=== PATIENT | female | born 1995 | race Hispanic/Latino ===

== ENCOUNTER 2017-12-25 09:24 | Outpatient (CLI) | payer OTHER ==
--- NOTE | 2017-12-25 13:27 | ULT ---
OB ULTRASOUND: HISTORY: Evaluate for size and dates. COMPARISON: None. TECHNIQUE: Sagittal and transverse imaging of gravid uterus performed. FINDINGS: The cervix is poorly defined. Posterior placenta. Single intrauterine gestation, breech presentation. heart tones with a rate of 140 b.p.m. BIOMETRY: BPD 5.25 cm, 22 weeks 0 days Head circumference 20.34 cm, 22 weeks 3 days Abdominal circumference 17.88 cm, 22 weeks 5 days Femur length 4.02 cm, 23 weeks 0 days Average age by sonography is 22 weeks 4 days. Estimated delivery date is 04/26/2018. Estimated weight is 534 gm +/- 79 grams. Amniotic fluid index is 14.7 cm. Survey: The following structures are adequately demonstrated: Nose and lips, orbits, urinary bladder, 3-vess el cord. Limited evaluation of the intracranial structures, stomach, 4-chamber heart, kidneys, and s pine. Visualized extremities are unremarkable. IMPRESSION: 1. Single intrauterine gestation with heart tones. Average age by sonography is 22 weeks 4 da ys. 2. Limited survey. Followup imaging can be performed. POS: YO
== END 2017-12-25 09:25 | disposition home or self-care (01) ==
LOC: ULT 09:24
PROVIDERS: ATTEND Family Medicine
DX: O09.892 Supervision of other high risk pregnancies, second trimester (principal)
CPT/HCPCS: 76805

== ENCOUNTER 2018-04-26 22:29 | Day surgery (SDC) | payer OTHER ==
[2018-04-26 23:18] VITALS: BMI 51.0
--- NOTE | 2018-04-27 | PDOC.LDHP ---
Labor and Delivery H&P Chief complaint: contractions HPI: 22 y/o G1 at 40w0d, patient of Dr. Marks, presents with ctx q 5 mins. Denies VB , LOF, decreased FM or other concerns. Was 3cm in clinic yesterday. ROS neg for HEENT, CV, pulm, GI, , neuro, psych, skin, musculoskeletal, or constitutional symptoms other than mentioned above. OB History Details: First Current complications: none Current medications: pre- vitamins Previous surgical history: none Allergies/Adverse Reactions: Allergies Allergy/AdvReac Type Severity Reaction Status Date / Time No Known Allergies Allergy Unverified 04/26/18 23:10 Social history: none - Physical Exam Vital signs reviewed and normal: yes General: NAD, resting Lungs: nonlabored breathing Abdomen: gravid Extremeties: no edema FHT: category 1 (135, mod variability, + accels, no decels) [place] contractions every: 4-5 mins - Vaginal Exam cm dilated: 3 Station: -3 - Assessment 22 y/o G1 at 40w0d with no e/o active labor. status reassuring with reactive NST. - Plan -: D/c home with precautions. Advised to keep all appointments.
== END 2018-04-26 23:55 | disposition home or self-care (01) ==
LOC: L&D/OP 22:29
PROVIDERS: ATTEND Family Medicine
DX: O47.1 False labor at or after 37 completed weeks of gestation (principal); Z3A.40 40 weeks gestation of pregnancy; Z79.899 Other long term (current) drug therapy
CPT/HCPCS: 99282

== ENCOUNTER 2018-04-29 07:53 | Inpatient (IN) | payer OTHER ==
[2018-04-29] MEDS ORDERED: Promethazine HCl 25 MG/ML VIAL IM PRN ×3 (08:13→20:25)
[2018-04-29] MEDS ORDERED: Ondansetron PF 4 MG/2 ML Vial IVP PRN ×4 (08:13→22:03)
[2018-04-29] MEDS ORDERED: Lactated Ringer's 1,000 ML IV SCH ×2 (08:15→22:03)
[2018-04-29] MEDS ORDERED: NS / Oxytocin 40 units/1000ml 1,000 ML IV PRN (08:16)
[2018-04-29] MEDS ORDERED: Ibuprofen 800 MG TAB PO PRN (08:16)
[2018-04-29] MEDS ORDERED: HYDROcodone/Acetaminophen 5/325 mg Tablet PO PRN ×3 (08:16→22:03)
[2018-04-29] MEDS ORDERED: Lidocaine 1% (PF) 30 ML VIAL SC PRN (08:16)
[2018-04-29] MEDS: Lactated Ringer's 1,000 ML IV SCH ×2 (08:35→11:55)
[2018-04-29 08:49] LABS: Hemoglobin 11.6 g/dL (12.0-16.0); Mean Corpuscular HGB CONC 32.3 g/dL (32.0-36.0); Mean Corpuscular Hemoglobin 25.5 pg (25.0-35.0); Mean Corpuscular Volume 78.9 fL (78.0-98.0); Mean Platelet Volume 8.7 fL (7.4-10.4); Platelet Count 309 thou/uL (130-400); RBC Distribution Width 13.9 % (11.5-14.5); Red Blood Cell (RBC) Count 4.57 mill/uL (4.00-5.20); White Blood Cell (WBC) Count 14.3 thou/uL (4.8-10.8)
[2018-04-29 09:05] VITALS: BMI 51.0
[2018-04-29 09:24] LABS: Syphilis Antibody Nonreactive (Nonreactive); Syphilis Antibody Index 0.02 S/CO (<1.00 Non-Reactive)
[2018-04-29 09:25] LABS: HBSAg Index 0.22 S/CO (0-0.99); Hep B Surf Ag Non-Reactive S/CO (NonReactive)
[2018-04-29] MEDS ORDERED: Methylergonovine 0.2 MG/ML VIAL IM SCH (09:30)
[2018-04-29] MEDS ORDERED: Carboprost 250 MCG/ML AMP IM SCH (09:30)
[2018-04-29] MEDS ORDERED: Fentanyl 4 mcg/Bup 0.1% Cadd 100 ML ONE (10:02)
[2018-04-29] MEDS ORDERED: Lidocaine 1.5%/Epinephrine 1:200,000 5 ML AMPUL IJ ONE (10:46)
[2018-04-29] MEDS ORDERED: Bupivacaine 0.25% HCL 30 ML VIAL ONE (11:11)
[2018-04-29] MEDS ORDERED: Acetaminophen 325 MG TAB PO PRN (11:59)
[2018-04-29] MEDS ORDERED: diphenhydrAMINE 50 MG/ML VIAL IVP PRN ×2 (11:59→20:25)
[2018-04-29] MEDS ORDERED: ePHEDrine/0.9% NaCl/PF SYRINGE 50 mg/10 ml SLOW IVP PRN (11:59)
[2018-04-29] MEDS ORDERED: Naloxone HCl 0.4 mg/ml Vial IVP PRN ×4 (11:59→20:25)
[2018-04-29] MEDS ORDERED: Eucerin (Mineral Oil/Petrolatum,White) 30 gm Jar TOP PRN ×2 (11:59→20:25)
[2018-04-29] MEDS ORDERED: Lactated Ringer's 500 ML IV PRN (11:59)
[2018-04-29] MEDS ORDERED: Fentanyl 4 mcg/Bupivacaine 0.1% Cassette 100 ML EPIDURAL SCH (12:00)
[2018-04-29] MEDS ORDERED: Communication Order-Pharmacy FS SCH ×2 (12:00→20:30)
[2018-04-29] MEDS ORDERED: NS w/ Oxytocin 10 units 500 ML ONE (14:01)
[2018-04-29] MEDS ORDERED: Bicitra 30 ML UDCUP ONE (18:37)
[2018-04-29] MEDS ORDERED: Lidocaine 2% 10 ML INJ ONE (18:57)
[2018-04-29] MEDS ORDERED: MORPHINE 5 MG/10 ML PF VIAL ONE (19:04)
[2018-04-29] MEDS ORDERED: Ondansetron PF 4 MG/2 ML Vial ONE (19:05)
[2018-04-29] MEDS ORDERED: Oxytocin 10 UNITS/ML VIAL ONE (19:05)
[2018-04-29] MEDS ORDERED: Carboprost 250 MCG/ML AMP ONE ×2 (19:29→19:35)
[2018-04-29] MEDS ORDERED: Methylergonovine 0.2 MG/ML VIAL ONE (19:29)
[2018-04-29] MEDS ORDERED: Fentanyl 100 MCG/2 ML VIAL ONE (19:47)
[2018-04-29] MEDS ORDERED: Naloxone HCl 0.4 mg/ml Vial IV PRN (20:25)
[2018-04-29] MEDS ORDERED: Promethazine HCl 25 MG SUPP PR PRN (20:25)
[2018-04-29] MEDS ORDERED: HYDROmorphone 2 MG/ML VIAL SLOW IVP PRN (20:26)
[2018-04-29] MEDS ORDERED: L&D-Morphine 4 MG/ML VIAL SLOW IVP PRN (20:26)
[2018-04-29] MEDS ORDERED: Ondansetron HCl/PF 4 MG/2 ML Vial IVP PRN (20:26)
[2018-04-29] MEDS ORDERED: cloNIDine 0.1 MG TAB PO PRN ×2 (20:26→20:28)
[2018-04-29] MEDS ORDERED: Meperidine HCl/PF 25 MG/ML VIAL SLOW IVP PRN (20:26)
[2018-04-29] MEDS ORDERED: Ketorolac Tromethamine 30 MG/ML VIAL IVP SCH (20:30)
[2018-04-29] MEDS ORDERED: Ketorolac Tromethamine 30 MG/ML VIAL ONE (20:31)
[2018-04-29] MEDS: Ketorolac Tromethamine 30 MG/ML VIAL IVP PRN (20:34)
[2018-04-29] MEDS ORDERED: Simethicone Chewable 80 MG TAB PO PRN (22:03)
[2018-04-29] MEDS ORDERED: Meperidine HCl/PF 25 MG/ML VIAL IM PRN (22:03)
[2018-04-29] MEDS ORDERED: NS / Oxytocin 40 units/1000ml 1,000 ML IV SCH (22:03)
[2018-04-29] MEDS ORDERED: Bisacodyl 10 MG SUPP PR PRN (22:03)
[2018-04-29] MEDS ORDERED: Lanolin Ointment 7 GM TUBE TOP PRN (22:03)
[2018-04-29] MEDS ORDERED: diphenhydrAMINE 25 MG CAP PO PRN (22:03)
--- NOTE | 2018-04-29 23:05 | DN ---
DATE OF PROCEDURE: 04/29/2018 PRIMARY SURGEON: Patel Marks MD [employer] SURGEON: Emperatriz Kirk MD, PGY-3. PROCEDURE PERFORMED: Primary low transverse section. PREOPERATIVE DIAGNOSES: 1. Term intrauterine . 2. Morbid obesity. 3. Arrest of dilation at 8 cm. POSTOPERATIVE DIAGNOSES: 1. Term intrauterine . 2. Morbid obesity. 3. Arrest of dilation at 8 cm. ANESTHESIA: Epidural. INDICATIONS: The patient is a 22-year-old G1, P0 female at 40 weeks and 3 days gestation, who presented in labor. After expectant management, the patient was noted to be 8 cm and failed to progress beyond that dilation. DESCRIPTION OF PROCEDURE: After risks, benefits, and alternatives were explained to the patient, she gave informed consent. Preoperative antibiotics included cefazolin 2 g IV. The patient was taken to the operating room and spinal anesthesia was initiated. She was placed in the supine position with the left tilt and prepped and draped in the usual sterile fashion. A Pfannenstiel incision was made with a scalpel and carried down to the level of the fascia, which was sharply nicked. The fascial cut was extended bilaterally with Bingham scissors. The inferior and superior edges of the fascial edges were elevated with Rosita clamps and underlying rectus muscles were sharply and bluntly dissected free. The recti were divided digitally and retracted manually. The peritoneum was entered bluntly and retracted manually. Bladder blade was placed. A low transverse score was made with a scalpel and the uterus was entered in the midline with a scalpel. Clear fluid was seen. The hysterotomy was extended manually. The infant was noted to be vertex and delivered easily by fundal pressure. Mouth and nares were bulb suctioned. Cord clamped and cut and grossly normal. Female infant was handed to awaiting nurse. Cord blood was obtained. Placenta was manually extracted and found to be intact with three-vessel cord and discarded. The uterus was externalized and the endometrium was curetted with a dry lap. The bladder blade was replaced and the uterus was closed with a running locking 0 Vicryl suture followed by multiple interrupted 0 Vicryl [id number] sutures to ensure hemostasis. Following this, hemostasis was noted. However, throughout the closure of the hysterotomy, the patient's uterus was noted to be boggy. Pitocin was running and she was given one dose of Methergine and one dose of Hemabate. Uterine tone improved with these measures. The abdomen was irrigated with saline and suctioned free of clots. Seprafilm was placed on the anterior surface of the uterus. The uterus was internalized and the hysterotomy was again noted to be hemostatic. The peritoneum was closed with a running nonlocking 2-0 Vicryl suture. The fascia was closed with a running nonlocking 0 PDS suture. Subcutaneous tissue was irrigated and all bleeders were cauterized. The subcutaneous tissue was approximated with 3 interrupted 3-0 chromic sutures. The skin was approximated with rodney and a pressure dressing was placed. All counts were correct. The patient tolerated the procedure well and was taken to the recovery room in stable condition. Prevena wound VAC was placed over the rodney and . ESTIMATED BLOOD LOSS: 600 mL, QBL pending. COMPLICATIONS: Slight hysterotomy extension on the right, which was easily incorporated with the hysterotomy repair. SPECIMENS: Cord blood sent to lab for blood type. FINDINGS: Grossly normal female infant with Apgars of 9 and 9. Grossly normal placenta with three-vessel cord discarded. DRAINS: Aldana to gravity draining clear urine. URINE OUTPUT: 300 throughout the procedure. Job ID: [id number]
[2018-04-29] MEDS: Docusate Calcium (SURFAK) 240 MG CAP PO SCH (23:41)
[2018-04-29] MEDS: Ferrous Sulfate 325 MG TAB PO SCH (23:41)
[2018-04-30] MEDS: Ketorolac Tromethamine 30 MG/ML VIAL IVP PRN (03:52)
[2018-04-30 07:47] LABS: Hemoglobin 9.2 g/dL (12.0-16.0); Mean Corpuscular HGB CONC 33.8 g/dL (32.0-36.0); Mean Corpuscular Hemoglobin 26.3 pg (25.0-35.0); Mean Corpuscular Volume 77.9 fL (78.0-98.0); Mean Platelet Volume 8.5 fL (7.4-10.4); Platelet Count 238 thou/uL (130-400); RBC Distribution Width 14.1 % (11.5-14.5); Red Blood Cell (RBC) Count 3.48 mill/uL (4.00-5.20); White Blood Cell (WBC) Count 12.7 thou/uL (4.8-10.8)
[2018-04-30] MEDS: Prenatal Vitamin 1 TAB PO SCH (10:08)
[2018-04-30] MEDS: HYDROcodone/Acetaminophen 5/325 mg Tablet PO PRN ×3 (10:09→19:53)
[2018-04-30] MEDS: Ferrous Sulfate 325 MG TAB PO SCH ×2 (10:10→21:42)
[2018-04-30] MEDS: Docusate Calcium (SURFAK) 240 MG CAP PO SCH ×2 (10:11→21:42)
[2018-04-30] MEDS: Ibuprofen 800 MG TAB PO SCH (21:42)
[2018-05-01] MEDS: HYDROcodone/Acetaminophen 5/325 mg Tablet PO PRN ×4 (04:05→22:57)
[2018-05-01] MEDS: Ibuprofen 800 MG TAB PO SCH ×3 (06:15→21:51)
[2018-05-01] MEDS: Ferrous Sulfate 325 MG TAB PO SCH ×2 (07:59→21:51)
[2018-05-01] MEDS: Prenatal Vitamin 1 TAB PO SCH (07:59)
[2018-05-01] MEDS: Docusate Calcium (SURFAK) 240 MG CAP PO SCH ×2 (07:59→21:51)
[2018-05-02] MEDS: Ibuprofen 800 MG TAB PO SCH ×2 (06:08→14:00)
[2018-05-02] MEDS: HYDROcodone/Acetaminophen 5/325 mg Tablet PO PRN ×2 (06:09→14:00)
[2018-05-02] MEDS: Prenatal Vitamin 1 TAB PO SCH (09:20)
[2018-05-02] MEDS: Ferrous Sulfate 325 MG TAB PO SCH (09:20)
[2018-05-02] MEDS: Docusate Calcium (SURFAK) 240 MG CAP PO SCH (09:20)
[2018-05-02 11:50] VITALS: BP 141/79; TEMP 98.1
== END 2018-05-02 16:10 | disposition home or self-care (01) | DRG 787 ==
LOC: L&D/OP 07:53 → L&D 08:13 → 3SE 22:35
PROVIDERS: ADMIT Obstetrics & Gynecology; ATTEND Family Medicine
PROC: 10D00Z1 Extraction of Products of Conception, Low, Open Approach (ICD-10-PCS; principal; 2018-04-29)
DX: O48.0 Post-term pregnancy (principal); Z68.43 Body mass index [BMI] 50.0-59.9, adult; Z3A.40 40 weeks gestation of pregnancy; Z37.0 Single live birth; O99.214 Obesity complicating childbirth; E66.01 Morbid (severe) obesity due to excess calories; O62.1 Secondary uterine inertia
CPT/HCPCS: 36415; 51702; 85027; 86780; 86850; 86900; 86901; 87340; 99285; J1885; J2001; J2210; J2270; J2405; J2590; J3010; J3490; S0020

== ENCOUNTER 2021-02-09 19:56 | Emergency (ER) | payer OTHER ==
[2021-02-10 13:54] LABS: SARS-CoV-2 PCR by NAA DETECTED (NotDetected)
== END 2021-02-09 21:22 | disposition home or self-care (01) ==
LOC: ERS 19:56
DX: U07.1 COVID-19 (principal); F17.210 Nicotine dependence, cigarettes, uncomplicated
CPT/HCPCS: 99284; U0003; U0005

== ENCOUNTER 2021-07-31 15:33 | Emergency (ER) | payer OTHER, SELFPAY ==
[2021-07-31] MEDS ORDERED: HYDROcodone/Acetaminophen 5/325 mg Tablet ONE (18:59)
== END 2021-07-31 19:18 | disposition home or self-care (01) ==
LOC: ERS 15:33
DX: T14.8XXA Other injury of unspecified body region, initial encounter (principal); J45.909 Unspecified asthma, uncomplicated; V89.2XXA Person injured in unspecified motor-vehicle accident, traffic, initial encounter
CPT/HCPCS: 99283